=== PATIENT | female | born 1990 | race Caucasian/White ===

== ENCOUNTER 2018-06-26 11:49 | Emergency (ER) | payer OTHER ==
[~2018-06-26] VITALS: Ht 165.1 cm; Wt 65.8 kg
[2018-06-26] MEDS ORDERED: TESSALON PERLE100 MG PO (12:13)
[2018-06-26] MEDS ORDERED: PROMETHAZINE V473 ML PO (12:13)
[2018-06-26] MEDS ORDERED: AMOXICILLIN 50500 MG PO (12:13)
[2018-06-26 12:35] VITALS: BP 142/69
== END 2018-06-26 12:36 | disposition home or self-care (01) ==
LOC: M.ERS 11:49
DX: J20.9 Acute bronchitis, unspecified (principal)

== ENCOUNTER 2018-07-18 11:27 | Emergency (ER) | payer OTHER ==
[~2018-07-18] VITALS: Ht 165.1 cm; Wt 63.5 kg
[~2018-07-18 11:27] MED LIST: AMOXICILLIN 50500 MG PO; PROMETHAZINE V473 ML PO; TESSALON PERLE100 MG PO
[2018-07-18 12:08] LABS: URINE BILIRUBIN NEGATIVE (Negative); URINE BLOOD NEGATIVE (Negative); URINE CLARITY CLEAR; URINE COLOR YELLOW; URINE GLUCOSE-RANDOM NEGATIVE (Negative); URINE KETONES NEGATIVE (Negative); URINE LEUKOCYTES-REFLEX TRACE (Negative); URINE NITRITE-REFLEX NEGATIVE (Negative); URINE PROTEIN 2+ (Negative); URINE SPECIFIC GRAVITY >= 1.030 (1.005-1.030); URINE UROBILINOGEN 0.2 E.U./dl (0.2-1.0)
[2018-07-18 12:19] LABS: SQUAMOUS 4-10 Moderate /LPF (0-3)
[2018-07-18 12:20] LABS: BACTERIA-REFLEX 1-9 Few /HPF (None Seen); CASTS None Seen /LPF (None Seen); CRYSTALS None Seen /LPF (None Seen); MUCUS 4-6 Moderate strn/LPF (None Seen); URINE RBC 0-2 Rare /HPF (0-2); URINE WBC-REFLEX 0-5 Rare /HPF (0-5)
[2018-07-18] MEDS ORDERED: ROBAXIN 750 MG750 M1 PO (12:22)
[2018-07-18] MEDS ORDERED: MEDROLDOSEPACK PO (12:22)
[2018-07-18] MEDS ORDERED: TRAMADOL 50 MG50 MG PO (12:24)
[2018-07-18 12:35] VITALS: BP 133/77
== END 2018-07-18 12:36 | disposition home or self-care (01) ==
LOC: M.ERS 11:27
PROVIDERS: Nurse Practitioner Family
DX: M54.41 Lumbago with sciatica, right side (principal); E28.2 Polycystic ovarian syndrome; G89.29 Other chronic pain; R51 Headache; Z88.6 Allergy status to analgesic agent; Z88.8 Allergy status to other drugs, medicaments and biological substances; Z88.1 Allergy status to other antibiotic agents; Z88.5 Allergy status to narcotic agent; Z88.0 Allergy status to penicillin; Z88.2 Allergy status to sulfonamides

== ENCOUNTER 2018-07-28 23:39 | Emergency (ER) | payer OTHER ==
[~2018-07-28] VITALS: Ht 165.1 cm; Wt 63.5 kg
[~2018-07-28 23:39] MED LIST changes: +MEDROLDOSEPACK PO; +ROBAXIN 750 MG750 M1 PO; +TRAMADOL 50 MG50 MG PO
[2018-07-28 23:48] VITALS: BP 116/84
[2018-07-29] MEDS ORDERED: CENTANY30 GM TOP (00:01)
[2018-07-29] MEDS ORDERED: NABUMETONE 750750 M1 PO (00:02)
== END 2018-07-29 00:12 | disposition home or self-care (01) ==
LOC: M.ERS 23:39
DX: T23.072A Burn of unspecified degree of left wrist, initial encounter (principal); X12.XXXA Contact with other hot fluids, initial encounter; Y93.89 Activity, other specified; Y92.89 Other specified places as the place of occurrence of the external cause; Y99.8 Other external cause status

== ENCOUNTER 2018-08-22 17:27 | Emergency (ER) | payer OTHER ==
[~2018-08-22] VITALS: Ht 165.1 cm; Wt 63.5 kg
[~2018-08-22 17:27] MED LIST changes: +CENTANY30 GM TOP; +NABUMETONE 750750 M1 PO
[2018-08-22] MEDS ORDERED: MEDROLDOSEPACK PO (17:58)
[2018-08-22] MEDS ORDERED: TRAMADOL 50 MG50 MG PO (17:58)
[2018-08-22] MEDS ORDERED: ROBAXIN 750 MG750 M1 PO (17:58)
[2018-08-22 18:14] VITALS: BP 127/70
[2018-08-22 18:18] LABS: URINE BILIRUBIN NEGATIVE (Negative); URINE BLOOD TRACE (Negative); URINE CLARITY CLEAR; URINE COLOR YELLOW; URINE GLUCOSE-RANDOM NEGATIVE (Negative); URINE KETONES NEGATIVE (Negative); URINE NITRITE-REFLEX NEGATIVE (Negative); URINE PROTEIN 2+ (Negative); URINE SPECIFIC GRAVITY >= 1.030 (1.005-1.030); URINE UROBILINOGEN 0.2 E.U./dl (0.2-1.0)
[2018-08-22 18:25] LABS: URINE LEUKOCYTES-REFLEX 2+ (Negative)
[2018-08-22 18:29] LABS: CASTS None Seen /LPF (None Seen); CRYSTALS None Seen /LPF (None Seen); SQUAMOUS >10 Many /LPF (0-3); URINE RBC 0-2 Rare /HPF (0-2); URINE WBC-REFLEX 6-15 Few /HPF (0-5)
== END 2018-08-22 18:16 | disposition home or self-care (01) ==
LOC: M.ERS 17:27
PROVIDERS: Physician Assistant
DX: M54.5 Low back pain (principal); Z88.0 Allergy status to penicillin; Z88.2 Allergy status to sulfonamides; Z88.5 Allergy status to narcotic agent; Z88.6 Allergy status to analgesic agent; Z88.1 Allergy status to other antibiotic agents; Z88.8 Allergy status to other drugs, medicaments and biological substances

== ENCOUNTER 2018-11-14 21:02 | Emergency (ER) | payer OTHER ==
[~2018-11-14] VITALS: Ht 165.1 cm; Wt 68.0 kg
[2018-11-14 22:11] LABS: INFLUENZA A ANTIGEN None Detected (None Detect); INFLUENZA B ANTIGEN None Detected (None Detect)
[2018-11-14] MEDS ORDERED: ZPAK PO (22:16)
[2018-11-14] MEDS ORDERED: PROMETHAZINE V120 ML PO (22:16)
[2018-11-14 22:34] VITALS: BP 110/76
== END 2018-11-14 22:33 | disposition home or self-care (01) ==
LOC: M.ERS 21:02
PROVIDERS: Physician Assistant
DX: J20.9 Acute bronchitis, unspecified (principal); Z88.6 Allergy status to analgesic agent; Z88.1 Allergy status to other antibiotic agents; Z88.0 Allergy status to penicillin; Z88.2 Allergy status to sulfonamides; Z88.8 Allergy status to other drugs, medicaments and biological substances

== ENCOUNTER 2019-01-02 21:04 | Emergency (ER) | payer OTHER ==
[~2019-01-02] VITALS: Ht 165.1 cm; Wt 63.5 kg
[~2019-01-02 21:04] MED LIST changes: +PROMETHAZINE V120 ML PO; +ZPAK PO
[2019-01-02 21:32] LABS: URINE BILIRUBIN NEGATIVE (Negative); URINE BLOOD NEGATIVE (Negative); URINE CLARITY CLEAR; URINE COLOR YELLOW; URINE GLUCOSE-RANDOM NEGATIVE (Negative); URINE KETONES NEGATIVE (Negative); URINE LEUKOCYTES-REFLEX NEGATIVE (Negative); URINE NITRITE-REFLEX NEGATIVE (Negative); URINE PROTEIN 2+ (Negative); URINE SPECIFIC GRAVITY >= 1.030 (1.005-1.030); URINE UROBILINOGEN 0.2 E.U./dl (0.2-1.0)
[2019-01-02 21:42] LABS: CASTS None Seen /LPF (None Seen); CRYSTALS None Seen /LPF (None Seen); MUCUS 0-3 Light strn/LPF (None Seen); SQUAMOUS >10 Many /LPF (0-3); URINE RBC None Seen /HPF (0-2); URINE WBC-REFLEX 6-15 Few /HPF (0-5)
[2019-01-02] MEDS ORDERED: MEDROLDOSEPACK PO (21:55)
[2019-01-02] MEDS ORDERED: KEFLEX500 M1 PO (21:55)
[2019-01-02] MEDS ORDERED: TRAMADOL 50 MG50 MG PO (21:55)
[2019-01-02] MEDS ORDERED: ROBAXIN 750 MG750 M1 PO (21:56)
[2019-01-02 22:06] VITALS: BP 123/78
== END 2019-01-02 22:07 | disposition home or self-care (01) ==
LOC: M.ERS 21:04
PROVIDERS: Physician Assistant
DX: N39.0 Urinary tract infection, site not specified (principal); Z88.6 Allergy status to analgesic agent; Z88.0 Allergy status to penicillin; Z88.2 Allergy status to sulfonamides; Z88.5 Allergy status to narcotic agent; Z88.1 Allergy status to other antibiotic agents; Z88.8 Allergy status to other drugs, medicaments and biological substances

== ENCOUNTER 2019-01-23 21:14 | Emergency (ER) | payer OTHER ==
[~2019-01-23] VITALS: Ht 165.1 cm; Wt 59.0 kg
[~2019-01-23 21:14] MED LIST changes: +KEFLEX500 M1 PO
[2019-01-23 22:07] LABS: URINE BILIRUBIN NEGATIVE (Negative); URINE BLOOD TRACE (Negative); URINE CLARITY CLEAR; URINE COLOR YELLOW; URINE GLUCOSE-RANDOM NEGATIVE (Negative); URINE KETONES NEGATIVE (Negative); URINE LEUKOCYTES-REFLEX NEGATIVE (Negative); URINE NITRITE-REFLEX NEGATIVE (Negative); URINE PROTEIN 2+ (Negative); URINE SPECIFIC GRAVITY >= 1.030 (1.005-1.030); URINE UROBILINOGEN 0.2 E.U./dl (0.2-1.0)
[2019-01-23 22:16] LABS: ABSOLUTE BASOPHILS 0.1 thou/uL (0.0-0.2); ABSOLUTE EOSINOPHILS 0.1 thou/uL (0.0-0.7); ABSOLUTE LYMPHOCYTES 2.9 thou/uL (0.8-5.3); ABSOLUTE MONOCYTES 0.6 thou/uL (0.0-1.2); ABSOLUTE NEUTROPHILS 5.1 thou/uL (1.6-8.1); BASOPHILS 0.7 %; EOSINOPHILS 0.9 %; HEMATOCRIT 43.2 % (37.0-47.0); HEMOGLOBIN 14.5 gm/dL (12.0-15.0); LYMPHOCYTES 33.6 %; MCH 27.8 pg (26.0-34.0); MCHC 33.5 g/dL (28.0-37.0); MCV 83.1 fL (80.0-100.0); MONOCYTES 6.4 %; MPV 6.8 fl. (7.2-11.1); NUCLEATED RBCS 0 /100WBC; PLATELET COUNT* 311 thou/uL (150-400); POLYS 58.4 %; RBC 5.19 mil/uL (4.20-5.00); RDW-CV 13.2 % (10.5-14.5); WBC 8.7 thou/uL (4.0-11.0)
[2019-01-23 22:20] LABS: AMP/METHAMP Negative (Negative); BARBITURATES Negative (Negative); BENZODIAZEPINES Negative (Negative); COCAINE Negative (Negative); METHADONE Negative (Negative); OPIATES Negative (Negative); PCP Negative (Negative); THC Negative (Negative)
[2019-01-23 22:28] LABS: CREATININE 0.8 mg/dL (0.6-1.3); POTASSIUM 3.3 mmol/L (3.5-5.1)
[2019-01-23 22:33] LABS: ALBUMIN 4.1 g/dL (3.4-5.0); TOTAL BILIRUBIN 0.8 mg/dL (<0.1-1.0); TOTAL PROTEIN 7.5 g/dL (6.4-8.2)
[2019-01-23 22:52] LABS: CASTS None Seen /LPF (None Seen); SQUAMOUS >10 Many /LPF (0-3)
[2019-01-23 22:53] LABS: BACTERIA-REFLEX >30 Many /HPF (None Seen); CRYSTALS None Seen /LPF (None Seen); MUCUS 4-6 Moderate strn/LPF (None Seen); URINE RBC None Seen /HPF (0-2); URINE WBC-REFLEX 0-5 Rare /HPF (0-5)
[2019-01-23] MEDS ORDERED: MACRODANTIN100 MG PO (23:23)
[2019-01-23] MEDS ORDERED: MEDROL DOSPAK21 TA1 PO (23:24)
[2019-01-23 23:41] VITALS: BP 118/74
== END 2019-01-23 23:42 | disposition home or self-care (01) ==
LOC: M.ERS 21:14
PROVIDERS: Nurse Practitioner Family
DX: N39.0 Urinary tract infection, site not specified (principal); M54.41 Lumbago with sciatica, right side; M54.42 Lumbago with sciatica, left side; Z88.0 Allergy status to penicillin; Z88.2 Allergy status to sulfonamides; Z88.5 Allergy status to narcotic agent; Z88.6 Allergy status to analgesic agent; Z88.8 Allergy status to other drugs, medicaments and biological substances; Z79.899 Other long term (current) drug therapy

== ENCOUNTER 2019-04-23 00:35 | Emergency (ER) | payer OTHER ==
[~2019-04-23] VITALS: Ht 165.1 cm; Wt 59.0 kg
[~2019-04-23 00:35] MED LIST changes: +MACRODANTIN100 MG PO; +MEDROL DOSPAK21 TA1 PO
[2019-04-23] MEDS ORDERED: PHENERGAN 25 MG25 M1 PO (03:25)
[2019-04-23 03:38] VITALS: BP 109/67
== END 2019-04-23 03:35 | disposition home or self-care (01) ==
LOC: M.ERS 00:35
DX: G43.909 Migraine, unspecified, not intractable, without status migrainosus (principal); R11.2 Nausea with vomiting, unspecified; R19.7 Diarrhea, unspecified; E28.2 Polycystic ovarian syndrome; Z88.8 Allergy status to other drugs, medicaments and biological substances; Z88.6 Allergy status to analgesic agent; Z88.1 Allergy status to other antibiotic agents; Z88.4 Allergy status to anesthetic agent; Z88.2 Allergy status to sulfonamides

== ENCOUNTER 2019-05-06 08:38 | Emergency (ER) | payer OTHER ==
[~2019-05-06] VITALS: Ht 162.6 cm; Wt 68.0 kg
[~2019-05-06 08:38] MED LIST changes: +PHENERGAN 25 MG25 M1 PO
[2019-05-06 09:15] LABS: URINE BILIRUBIN NEGATIVE (Negative); URINE BLOOD NEGATIVE (Negative); URINE CLARITY CLEAR; URINE COLOR YELLOW; URINE GLUCOSE-RANDOM NEGATIVE (Negative); URINE KETONES TRACE (Negative); URINE LEUKOCYTES NEGATIVE (Negative); URINE NITRITE NEGATIVE (Negative); URINE PROTEIN 2+ (Negative); URINE SPECIFIC GRAVITY 1.025 (1.005-1.030); URINE UROBILINOGEN 0.2 E.U./dl (0.2-1.0)
[2019-05-06 09:27] LABS: CASTS None Seen /LPF (None Seen); CRYSTALS None Seen /LPF (None Seen); MUCUS >6 Heavy strn/LPF (None Seen); SQUAMOUS 4-10 Moderate /LPF (0-3); URINE RBC 0-2 Rare /HPF (0-2); URINE WBC 0-5 Rare /HPF (0-5)
[2019-05-06] MEDS ORDERED: FLEXERIL PO (10:22)
[2019-05-06 10:30] VITALS: BP 98/53
== END 2019-05-06 10:32 | disposition home or self-care (01) ==
LOC: M.ERS 08:38
PROVIDERS: Emergency Medicine Emergency Medical Services
DX: M54.5 Low back pain (principal); E28.2 Polycystic ovarian syndrome; Z88.8 Allergy status to other drugs, medicaments and biological substances; Z88.0 Allergy status to penicillin; Z88.7 Allergy status to serum and vaccine; Z88.2 Allergy status to sulfonamides; Z88.1 Allergy status to other antibiotic agents; Z88.5 Allergy status to narcotic agent; Z88.6 Allergy status to analgesic agent

== ENCOUNTER 2019-07-31 00:30 | Emergency (ER) | payer OTHER ==
[~2019-07-31] VITALS: Ht 165.1 cm; Wt 63.5 kg
[~2019-07-31 00:30] MED LIST changes: +FLEXERIL PO
[2019-07-31 01:16] LABS: URINE BILIRUBIN NEGATIVE (Negative); URINE BLOOD 3+ (Negative); URINE COLOR YELLOW; URINE GLUCOSE-RANDOM NEGATIVE (Negative); URINE KETONES NEGATIVE (Negative); URINE LEUKOCYTES-REFLEX NEGATIVE (Negative); URINE NITRITE-REFLEX NEGATIVE (Negative); URINE PROTEIN 2+ (Negative); URINE SPECIFIC GRAVITY 1.025 (1.005-1.030); URINE UROBILINOGEN 0.2 E.U./dl (0.2-1.0)
[2019-07-31 01:17] LABS: URINE CLARITY SL CLOUDY
[2019-07-31 01:27] LABS: ABSOLUTE BASOPHILS 0.1 thou/uL (0.0-0.2); ABSOLUTE EOSINOPHILS 0.1 thou/uL (0.0-0.7); ABSOLUTE LYMPHOCYTES 3.5 thou/uL (0.8-5.3); ABSOLUTE MONOCYTES 0.7 thou/uL (0.0-1.2); ABSOLUTE NEUTROPHILS 2.8 thou/uL (1.6-8.1); BASOPHILS 1.1 %; EOSINOPHILS 1.8 %; HEMATOCRIT 38.2 % (37.0-47.0); HEMOGLOBIN 13.1 gm/dL (12.0-15.0); LYMPHOCYTES 47.8 %; MCH 28.5 pg (26.0-34.0); MCHC 34.3 g/dL (28.0-37.0); MCV 82.9 fL (80.0-100.0); MONOCYTES 10.3 %; NUCLEATED RBCS 0 /100WBC; PLATELET COUNT* 251 thou/uL (150-400); RDW-CV 13.2 % (10.5-14.5); WBC 7.2 thou/uL (4.0-11.0)
[2019-07-31 01:38] LABS: CALCIUM 8.4 mg/dL (8.5-10.1); CREATININE 0.7 mg/dL (0.6-1.3); POTASSIUM 3.8 mmol/L (3.5-5.1); TOTAL BILIRUBIN 0.5 mg/dL (<0.1-1.0); TOTAL PROTEIN 7.4 g/dL (6.4-8.2)
[2019-07-31 01:38] LABS: SQUAMOUS >10 Many /LPF (0-3); TRANSITIONAL EPITHEL CELL 0-3 Few /LPF (None Seen)
[2019-07-31 01:39] LABS: BACTERIA-REFLEX >30 Many /HPF (None Seen); CASTS None Seen /LPF (None Seen); CRYSTALS None Seen /LPF (None Seen); MUCUS 4-6 Moderate strn/LPF (None Seen); URINE WBC-REFLEX 0-5 Rare /HPF (0-5)
[2019-07-31] MEDS ORDERED: FLAGYL500 M1 PO (03:10)
[2019-07-31 03:29] VITALS: BP 134/85
== END 2019-07-31 03:31 | disposition home or self-care (01) ==
LOC: M.ERS 00:30
PROVIDERS: Emergency Medicine Emergency Medical Services
DX: N76.0 Acute vaginitis (principal); N92.1 Excessive and frequent menstruation with irregular cycle; N93.9 Abnormal uterine and vaginal bleeding, unspecified; B96.89 Other specified bacterial agents as the cause of diseases classified elsewhere; Z88.6 Allergy status to analgesic agent; Z88.0 Allergy status to penicillin; Z88.2 Allergy status to sulfonamides; Z88.8 Allergy status to other drugs, medicaments and biological substances

== ENCOUNTER 2019-08-21 12:07 | Emergency (ER) | payer OTHER ==
[~2019-08-21] VITALS: Ht 165.1 cm; Wt 63.5 kg
[~2019-08-21 12:07] MED LIST changes: +FLAGYL500 M1 PO
[2019-08-21] MEDS ORDERED: PROAIR HFA8.5 GM INH ×2 (12:35→15:47)
[2019-08-21 13:15] LABS: INFLUENZA A ANTIGEN Negative (Negative); INFLUENZA B ANTIGEN Negative (Negative)
[2019-08-21 15:14] LABS: URINE BILIRUBIN NEGATIVE (Negative); URINE BLOOD TRACE (Negative); URINE CLARITY CLEAR; URINE COLOR YELLOW; URINE GLUCOSE-RANDOM NEGATIVE (Negative); URINE KETONES TRACE (Negative); URINE LEUKOCYTES-REFLEX NEGATIVE (Negative); URINE NITRITE-REFLEX NEGATIVE (Negative); URINE PROTEIN 2+ (Negative); URINE SPECIFIC GRAVITY 1.025 (1.005-1.030); URINE UROBILINOGEN 0.2 E.U./dl (0.2-1.0)
[2019-08-21 15:23] LABS: SQUAMOUS >10 Many /LPF (0-3)
[2019-08-21 15:24] LABS: BACTERIA-REFLEX None Seen /HPF (None Seen); CASTS None Seen /LPF (None Seen); MUCUS >6 Heavy strn/LPF (None Seen); URINE RBC None Seen /HPF (0-2); URINE WBC-REFLEX 0-5 Rare /HPF (0-5)
[2019-08-21 15:25] LABS: CRYSTALS None Seen /LPF (None Seen)
[2019-08-21] MEDS ORDERED: TESSALON PERLE100 M1 PO (15:47)
[2019-08-21] MEDS ORDERED: PREDNISONE 10 M10 MG PO (15:47)
[2019-08-21 16:16] VITALS: BP 119/72
== END 2019-08-21 16:20 | disposition home or self-care (01) ==
LOC: M.ERS 12:07
PROVIDERS: Nurse Practitioner Family; Physician Assistant
DX: J06.9 Acute upper respiratory infection, unspecified (principal); B34.9 Viral infection, unspecified; Z88.0 Allergy status to penicillin; Z88.2 Allergy status to sulfonamides; Z88.8 Allergy status to other drugs, medicaments and biological substances; Z88.7 Allergy status to serum and vaccine

== ENCOUNTER 2019-08-28 00:14 | Emergency (ER) | payer OTHER ==
[~2019-08-28] VITALS: Ht 165.1 cm; Wt 68.0 kg
[~2019-08-28 00:14] MED LIST changes: +PREDNISONE 10 M10 MG PO; +PROAIR HFA8.5 GM INH; +TESSALON PERLE100 M1 PO
[2019-08-28] MEDS ORDERED: HYDROCODON-ACE1 EAC8 PO (01:48)
[2019-08-28 02:01] VITALS: BP 122/70
== END 2019-08-28 02:02 | disposition home or self-care (01) ==
LOC: M.ERS 00:14
DX: J40 Bronchitis, not specified as acute or chronic (principal); Z88.0 Allergy status to penicillin; Z88.2 Allergy status to sulfonamides; Z88.7 Allergy status to serum and vaccine; Z88.6 Allergy status to analgesic agent; Z88.8 Allergy status to other drugs, medicaments and biological substances

== ENCOUNTER 2019-12-12 22:44 | Emergency (ER) | payer OTHER ==
[~2019-12-12] VITALS: Ht 165.1 cm; Wt 65.8 kg
[~2019-12-12 22:44] MED LIST changes: +HYDROCODON-ACE1 EAC8 PO
[2019-12-12] MEDS ORDERED: COMPAZINE10 M2 PO (23:49)
[2019-12-12] MEDS ORDERED: BUTALB-APAP-CA1 EACH PO (23:49)
[2019-12-13 00:10] VITALS: BP 108/66
== END 2019-12-13 00:10 | disposition home or self-care (01) ==
LOC: M.ERS 22:44
DX: G43.909 Migraine, unspecified, not intractable, without status migrainosus (principal); R11.2 Nausea with vomiting, unspecified; E28.2 Polycystic ovarian syndrome; Z88.0 Allergy status to penicillin; Z88.2 Allergy status to sulfonamides; Z88.6 Allergy status to analgesic agent; Z88.8 Allergy status to other drugs, medicaments and biological substances

== ENCOUNTER 2019-12-21 10:42 | Emergency (ER) | payer OTHER ==
[~2019-12-21] VITALS: Ht 165.1 cm; Wt 63.5 kg
[~2019-12-21 10:42] MED LIST changes: +BUTALB-APAP-CA1 EACH PO; +COMPAZINE10 M2 PO
[2019-12-21] MEDS ORDERED: ZPAK PO (12:33)
[2019-12-21 12:55] VITALS: BP 129/87
== END 2019-12-21 12:55 | disposition home or self-care (01) ==
LOC: M.ERS 10:42
DX: J40 Bronchitis, not specified as acute or chronic (principal); Z20.828 Contact with and (suspected) exposure to other viral communicable diseases; Z88.0 Allergy status to penicillin; Z88.2 Allergy status to sulfonamides; Z88.7 Allergy status to serum and vaccine; Z88.5 Allergy status to narcotic agent; Z88.6 Allergy status to analgesic agent; Z88.8 Allergy status to other drugs, medicaments and biological substances

== ENCOUNTER 2020-01-30 | Emergency (ER) | payer OTHER | END 2020-01-30 00:34 | disposition left against medical advice (07) | LOC: M.ERS | DX: Z53.21 Procedure and treatment not carried out due to patient leaving prior to being seen by health care provider (principal) ==

== ENCOUNTER 2020-02-12 20:13 | Emergency (ER) | payer OTHER ==
[~2020-02-12] VITALS: Ht 165.1 cm; Wt 59.0 kg
[2020-02-12 20:45] LABS: URINE BILIRUBIN NEGATIVE (Negative); URINE BLOOD NEGATIVE (Negative); URINE COLOR YELLOW; URINE GLUCOSE-RANDOM NEGATIVE (Negative); URINE KETONES NEGATIVE (Negative); URINE LEUKOCYTES-REFLEX NEGATIVE (Negative); URINE NITRITE-REFLEX NEGATIVE (Negative); URINE PROTEIN 2+ (Negative); URINE SPECIFIC GRAVITY 1.025 (1.005-1.030); URINE UROBILINOGEN 0.2 E.U./dl (0.2-1.0)
[2020-02-12 20:48] LABS: URINE CLARITY HAZY
[2020-02-12 20:55] LABS: SQUAMOUS >10 Many /LPF (0-3)
[2020-02-12 20:56] LABS: BACTERIA-REFLEX >30 Many /HPF (None Seen); CASTS None Seen /LPF (None Seen); CRYSTALS None Seen /LPF (None Seen); MUCUS 4-6 Moderate strn/LPF (None Seen); URINE RBC None Seen /HPF (0-2); URINE WBC-REFLEX None Seen /HPF (0-5)
[2020-02-12] MEDS ORDERED: ZOFRAN ODT4 MG PO (21:04)
[2020-02-12] MEDS ORDERED: MACROBID 100 M100 M1 PO (21:04)
[2020-02-12 21:27] VITALS: BP 115/67
== END 2020-02-12 21:28 | disposition home or self-care (01) ==
LOC: M.ERS 20:13
PROVIDERS: Emergency Medicine
DX: N39.0 Urinary tract infection, site not specified (principal); R11.2 Nausea with vomiting, unspecified; E28.2 Polycystic ovarian syndrome; Z88.0 Allergy status to penicillin; Z88.2 Allergy status to sulfonamides; Z88.6 Allergy status to analgesic agent; Z88.8 Allergy status to other drugs, medicaments and biological substances

== ENCOUNTER 2020-04-14 10:57 | Emergency (ER) | payer OTHER ==
[~2020-04-14] VITALS: Ht 165.1 cm; Wt 63.5 kg
[~2020-04-14 10:57] MED LIST changes: +MACROBID 100 M100 M1 PO; +ZOFRAN ODT4 MG PO
[2020-04-14] MEDS ORDERED: NORCO 5-325 TA1 EAC2 PO (12:07)
[2020-04-14] MEDS ORDERED: FLEXERIL PO (12:07)
[2020-04-14 13:13] VITALS: BP 150/103
== END 2020-04-14 13:14 | disposition home or self-care (01) ==
LOC: M.ERS 10:57
DX: S30.0XXA Contusion of lower back and pelvis, initial encounter (principal); Z88.6 Allergy status to analgesic agent; Z88.0 Allergy status to penicillin; Z88.2 Allergy status to sulfonamides; Z88.7 Allergy status to serum and vaccine; Z88.1 Allergy status to other antibiotic agents; Z88.8 Allergy status to other drugs, medicaments and biological substances; W01.0XXA Fall on same level from slipping, tripping and stumbling without subsequent striking against object, initial encounter; Y93.89 Activity, other specified; Y92.89 Other specified places as the place of occurrence of the external cause; Y99.8 Other external cause status

== ENCOUNTER 2020-04-16 14:53 | Emergency (ER) | payer OTHER ==
[~2020-04-16] VITALS: Ht 165.1 cm; Wt 63.5 kg
[~2020-04-16 14:53] MED LIST changes: +NORCO 5-325 TA1 EAC2 PO
[2020-04-16] MEDS ORDERED: PERCOCET 5-3251 EACH PO (16:39)
[2020-04-16] MEDS ORDERED: PREDNISONE 20 M20 M1 PO (16:39)
[2020-04-16 16:54] VITALS: BP 133/81
== END 2020-04-16 16:55 | disposition home or self-care (01) ==
LOC: M.ERS 14:53
DX: M54.5 Low back pain (principal); Z88.8 Allergy status to other drugs, medicaments and biological substances; Z88.6 Allergy status to analgesic agent; Z88.2 Allergy status to sulfonamides; Z88.7 Allergy status to serum and vaccine; W01.0XXA Fall on same level from slipping, tripping and stumbling without subsequent striking against object, initial encounter; Y93.89 Activity, other specified; Y92.89 Other specified places as the place of occurrence of the external cause; Y99.8 Other external cause status

== ENCOUNTER 2020-06-18 20:13 | Emergency (ER) | payer OTHER ==
[~2020-06-18] VITALS: Ht 160 cm; Wt 71.7 kg
[~2020-06-18 20:13] MED LIST changes: +PERCOCET 5-3251 EACH PO; +PREDNISONE 20 M20 M1 PO
[2020-06-18] MEDS ORDERED: PERCOCET 7.5-31 EAC1 PO (21:50)
[2020-06-18 22:00] VITALS: BP 126/84
== END 2020-06-18 22:00 | disposition home or self-care (01) ==
LOC: M.ERS 20:13
DX: M54.16 Radiculopathy, lumbar region (principal); R51.9 Headache, unspecified; Z88.6 Allergy status to analgesic agent; Z88.5 Allergy status to narcotic agent; Z88.0 Allergy status to penicillin; Z88.7 Allergy status to serum and vaccine; Z88.2 Allergy status to sulfonamides

== ENCOUNTER 2021-01-23 23:37 | Emergency (ER) | payer OTHER ==
[~2021-01-23] VITALS: Ht 165.1 cm; Wt 74.4 kg
[~2021-01-23 23:37] MED LIST changes: +PERCOCET 7.5-31 EAC1 PO
[2021-01-24] MEDS ORDERED: TRAMADOL 50 MG50 MG PO (00:01)
[2021-01-24] MEDS ORDERED: PREDNISONE50 MG PO (00:02)
[2021-01-24 00:11] VITALS: BP 112/76
== END 2021-01-24 00:11 | disposition home or self-care (01) ==
LOC: M.ERS 23:37
DX: S03.00XA Dislocation of jaw, unspecified side, initial encounter (principal); E28.2 Polycystic ovarian syndrome; Z88.6 Allergy status to analgesic agent; Z88.2 Allergy status to sulfonamides; Z88.0 Allergy status to penicillin; Z88.1 Allergy status to other antibiotic agents; Z88.7 Allergy status to serum and vaccine; X58.XXXA Exposure to other specified factors, initial encounter; Y93.89 Activity, other specified; Y92.89 Other specified places as the place of occurrence of the external cause; Y99.8 Other external cause status